=== PATIENT | female | born 1950 | race Caucasian/White ===

== ENCOUNTER → 2016-10-13 | Outpatient (CLI) | payer BC ==
[~2016-10-13] MED LIST: ANTIVERT/2525 M1 PO; BENADRYL25 MG PO; CLARITIN10 M1 PO; HYDROCODONE BIT1 T11 PO; LIPITOR20 MG PO; MEDROL DOSEPAK4 MG PO; NAPROSYN500 MG PO; ZANTAC 7575 MG PO; ZANTAC150 MG PO; ZESTORETIC 25 M1 TA4 PO
[2016-10-13 11:22] LABS: ALBUMIN 3.6 gm/dl (3.1-4.5); ALKALINE PHOSPHATASE 75 U/L (45-117); BILIRUBIN, TOTAL 0.9 mg/dl (0.2-1.0); BUN 20 mg/dl (7-24); CARBON DIOXIDE 30 mmol/L (21-32); CHLORIDE 105 mmol/L (98-107); CHOLESTEROL 179 mg/dL (<200); CPK 145 U/L (26-192); EST GLOM FILT AFRICAN AMERICAN > 60 ml/min; GLUCOSE 85 mg/dL (65-99); HDL CHOLESTEROL 71 mg/dl (40-60); LDL CHOLESTEROL 81 mg/dL (9-159); POTASSIUM 3.8 mmol/L (3.5-5.1); SGOT/AST 18 IU/L (3-35); SGPT/ALT 29 U/L (12-78); SODIUM 145 mmol/L (136-145); TRIGLYCERIDES 135 mg/dl (<150); VLDL CHOLESTEROL 27 mg/dL (6-40)
== END | disposition home or self-care (01) ==
LOC: LAB 10:41
PROVIDERS: Family Medicine
DX: I10 Essential (primary) hypertension (principal); E78.00 Pure hypercholesterolemia, unspecified; E66.9 Obesity, unspecified; E55.9 Vitamin D deficiency, unspecified; R53.83 Other fatigue

== ENCOUNTER 2016-11-04 11:58 | Inpatient (IN) | payer BC ==
[~2016-11-04] VITALS: Ht 165.1 cm; Wt 107.3 kg
[2016-11-04] VITALS (9 sets, daily range): BP systolic 130–158; BP diastolic 58–92
[2016-11-04] MEDS ORDERED: LISINOPRIL AND1 TA2 PO (12:04)
[2016-11-04 12:31] LABS: BASO % 0.6 % (0.0-1.0); EOS # 0.4 10*3/uL (0.0-0.4); EOS % 6.1 % (1.0-4.0); HEMATOCRIT 40.1 % (37.0-47.0); HEMOGLOBIN 13.1 g/dl (12.0-16.0); LYMPH # 2.8 10*3/uL (1.3-4.4); MEAN CELL VOLUME 86.8 fl (81.0-99.0); MEAN CORPUSCULAR HGB 28.4 pg (27.0-31.0); MEAN CORPUSCULAR HGB CONC 32.7 g/dl (33.0-37.0); MEAN PLATELET VOLUME 9.9 fl (9.6-12.3); MONO # 0.5 10*3/uL (0.1-1.0); MONO % 6.8 % (3.0-9.0); NEUT # 3.4 10*3/uL (2.3-7.9); NEUT % 47.4 % (47.0-73.0); PLATELET COUNT AUTOMATED 253 10*3/uL (130-400); RED BLOOD COUNT 4.62 10*6/uL (4.10-5.10); RED CELL DISTRI WIDTH 13.3 % (0-14.5); WHITE BLOOD COUNT 7.2 10*3/uL (4.8-10.8)
[2016-11-04 12:40] LABS: INTERNATIONAL NORM RATIO 0.9 (2.0-3.5); PROTHROMBIN TIME 9.9 SECONDS (9.0-12.4)
[2016-11-04 12:47] LABS: ALBUMIN 3.6 gm/dl (3.1-4.5); ALKALINE PHOSPHATASE 73 U/L (45-117); BILIRUBIN, TOTAL 0.6 mg/dl (0.2-1.0); BUN 28 mg/dl (7-24); CARBON DIOXIDE 27 mmol/L (21-32); CHLORIDE 105 mmol/L (98-107); EST GLOM FILT AFRICAN AMERICAN > 60 ml/min; GLUCOSE 113 mg/dL (65-99); MAGNESIUM 1.7 mg/dL (1.5-2.1); POTASSIUM 3.8 mmol/L (3.5-5.1); SGOT/AST 17 IU/L (3-35); SGPT/ALT 27 U/L (12-78); SODIUM 141 mmol/L (136-145); TOTAL PROTEIN 7.1 gm/dL (6.4-8.2)
[2016-11-05] VITALS: BP 141/64
[2016-11-05 06:56] LABS: BASO % 0.5 % (0.0-1.0); EOS # 0.5 10*3/uL (0.0-0.4); HEMATOCRIT 36.6 % (37.0-47.0); LYMPH # 3.5 10*3/uL (1.3-4.4); LYMPH % 46.7 % (27.0-41.0); MEAN CELL VOLUME 87.1 fl (81.0-99.0); MEAN CORPUSCULAR HGB 28.6 pg (27.0-31.0); MEAN CORPUSCULAR HGB CONC 32.8 g/dl (33.0-37.0); MEAN PLATELET VOLUME 10.1 fl (9.6-12.3); MONO # 0.6 10*3/uL (0.1-1.0); MONO % 7.8 % (3.0-9.0); NEUT # 2.8 10*3/uL (2.3-7.9); NEUT % 37.7 % (47.0-73.0); PLATELET COUNT AUTOMATED 244 10*3/uL (130-400); RED CELL DISTRI WIDTH 13.3 % (0-14.5); WHITE BLOOD COUNT 7.4 10*3/uL (4.8-10.8)
[2016-11-05 07:17] LABS: INTERNATIONAL NORM RATIO 0.9 (2.0-3.5)
[2016-11-05 07:20] LABS: ALBUMIN 3.1 gm/dl (3.1-4.5); BUN 19 mg/dl (7-24); CARBON DIOXIDE 27 mmol/L (21-32); CHLORIDE 109 mmol/L (98-107); CHOLESTEROL 188 mg/dL (<200); EST GLOM FILT AFRICAN AMERICAN > 60 ml/min; GLUCOSE 91 mg/dL (65-99); MAGNESIUM 1.8 mg/dL (1.5-2.1); PHOSPHOROUS 2.9 mg/dL (2.5-4.9); POTASSIUM 3.8 mmol/L (3.5-5.1); SGOT/AST 11 IU/L (3-35); SGPT/ALT 23 U/L (12-78); SODIUM 144 mmol/L (136-145); TRIGLYCERIDES 121 mg/dl (<150); VLDL CHOLESTEROL 24 mg/dL (6-40)
[2016-11-05 07:29] LABS: ALKALINE PHOSPHATASE 62 U/L (45-117); BILIRUBIN, TOTAL 0.6 mg/dl (0.2-1.0); FREE T4 1.01 ng/dl (0.76-1.46); HDL CHOLESTEROL 67 mg/dl (40-60); LDL CHOLESTEROL 97 mg/dL (9-159); THYROID STIM HORMONE (HS) 0.774 uIU/ml (0.358-4.75); TOTAL PROTEIN 6.2 gm/dL (6.4-8.2)
[2016-11-05 07:52] LABS: FOLIC ACID 8.63 ng/mL (>5.38)
[2016-11-05 08:00] VITALS: BP 154/70
[2016-11-05 08:11] LABS: VITAMIN D, 25-HYDROXY 20.1 ng/mL (30-100)
== END 2016-11-05 09:49 | disposition home or self-care (01) | DRG 149 ==
LOC: ED 11:58 → 4E 13:11 → EDHOLD 13:11 → 4E 13:40
PROVIDERS: Internal Medicine; Nurse Practitioner Family
DX: R42 Dizziness and giddiness (principal); I10 Essential (primary) hypertension; R26.9 Unspecified abnormalities of gait and mobility; R26.2 Difficulty in walking, not elsewhere classified; J30.2 Other seasonal allergic rhinitis; R03.0 Elevated blood-pressure reading, without diagnosis of hypertension; K21.9 Gastro-esophageal reflux disease without esophagitis; E78.5 Hyperlipidemia, unspecified; E66.09 Other obesity due to excess calories; Z90.49 Acquired absence of other specified parts of digestive tract; Z82.5 Family history of asthma and other chronic lower respiratory diseases; Z91.041 Radiographic dye allergy status; Z79.899 Other long term (current) drug therapy; Z68.38 Body mass index [BMI] 38.0-38.9, adult

== ENCOUNTER → 2017-01-31 | Outpatient (CLI) | payer OTHER ==
[~2017-01-31] MED LIST changes: +LISINOPRIL AND1 TA2 PO
[2017-01-31 13:59] LABS: ALBUMIN 3.5 gm/dl (3.1-4.5); ALKALINE PHOSPHATASE 78 U/L (45-117); BUN 22 mg/dl (7-24); CHLORIDE 102 mmol/L (98-107); CHOLESTEROL 187 mg/dL (<200); CPK 104 U/L (26-192); CREATININE 0.84 mg/dL (0.55-1.02); HDL CHOLESTEROL 71 mg/dl (40-60); LDL CHOLESTEROL 90 mg/dL (9-159); POTASSIUM 4.3 mmol/L (3.5-5.1); SGOT/AST 17 IU/L (3-35); SGPT/ALT 26 U/L (12-78); SODIUM 141 mmol/L (136-145); TOTAL PROTEIN 7.3 gm/dL (6.4-8.2); TRIGLYCERIDES 132 mg/dl (<150); VLDL CHOLESTEROL 26 mg/dL (6-40)
== END | disposition home or self-care (01) ==
LOC: LAB 13:10
PROVIDERS: Family Medicine
DX: I10 Essential (primary) hypertension (principal); E78.00 Pure hypercholesterolemia, unspecified; E55.9 Vitamin D deficiency, unspecified

== ENCOUNTER → 2017-06-07 | Outpatient (CLI) | payer OTHER ==
[2017-06-07 08:30] LABS: HEMOGLOBIN 12.5 g/dl (12.0-16.0); MEAN CELL VOLUME 86.6 fl (81.0-99.0); MEAN CORPUSCULAR HGB 28.5 pg (27.0-31.0); MEAN CORPUSCULAR HGB CONC 32.9 g/dl (33.0-37.0); MEAN PLATELET VOLUME 10.2 fl (9.6-12.3); RED BLOOD COUNT 4.39 10*6/uL (4.10-5.10); WHITE BLOOD COUNT 7.9 10*3/uL (4.8-10.8)
[2017-06-07 08:42] LABS: ALBUMIN 3.4 gm/dl (3.1-4.5); ALKALINE PHOSPHATASE 73 U/L (45-117); BUN 21 mg/dl (7-24); CHLORIDE 103 mmol/L (98-107); CHOLESTEROL 254 mg/dL (<200); CREATININE 0.79 mg/dL (0.55-1.02); HDL CHOLESTEROL 71 mg/dl (40-60); LDL CHOLESTEROL 156 mg/dL (9-159); POTASSIUM 3.3 mmol/L (3.5-5.1); SGOT/AST 16 IU/L (3-35); SGPT/ALT 22 U/L (12-78); SODIUM 142 mmol/L (136-145); TOTAL PROTEIN 7.1 gm/dL (6.4-8.2); TRIGLYCERIDES 133 mg/dl (<150); VLDL CHOLESTEROL 27 mg/dL (6-40)
== END | disposition home or self-care (01) ==
LOC: LAB 07:18
PROVIDERS: Family Medicine
DX: E78.00 Pure hypercholesterolemia, unspecified (principal); E55.9 Vitamin D deficiency, unspecified; Z79.899 Other long term (current) drug therapy

== ENCOUNTER → 2017-10-18 | Outpatient (CLI) | payer OTHER ==
[2017-10-18 10:48] LABS: HEMATOCRIT 41.5 % (37.0-47.0); HEMOGLOBIN 13.4 g/dl (12.0-16.0); MEAN CELL VOLUME 88.1 fl (81.0-99.0); MEAN CORPUSCULAR HGB 28.5 pg (27.0-31.0); MEAN CORPUSCULAR HGB CONC 32.3 g/dl (33.0-37.0); MEAN PLATELET VOLUME 10.2 fl (9.6-12.3); RED BLOOD COUNT 4.71 10*6/uL (4.10-5.10); RED CELL DISTRI WIDTH 13.2 % (0-14.5); WHITE BLOOD COUNT 6.9 10*3/uL (4.8-10.8)
[2017-10-18 11:23] LABS: ALBUMIN 3.7 gm/dl (3.1-4.5); ALKALINE PHOSPHATASE 72 U/L (45-117); BUN 19 mg/dl (7-24); CHLORIDE 106 mmol/L (98-107); CHOLESTEROL 232 mg/dL (<200); CREATININE 0.89 mg/dL (0.55-1.02); HDL CHOLESTEROL 66 mg/dl (40-60); LDL CHOLESTEROL 145 mg/dL (9-159); SGOT/AST 16 IU/L (3-35); SGPT/ALT 26 U/L (12-78); SODIUM 142 mmol/L (136-145); TOTAL PROTEIN 7.2 gm/dL (6.4-8.2); TRIGLYCERIDES 105 mg/dl (<150); VLDL CHOLESTEROL 21 mg/dL (6-40)
== END | disposition home or self-care (01) ==
LOC: LAB 10:20
PROVIDERS: Family Medicine
DX: E78.00 Pure hypercholesterolemia, unspecified (principal); E55.9 Vitamin D deficiency, unspecified; I10 Essential (primary) hypertension; E87.6 Hypokalemia; Z79.899 Other long term (current) drug therapy

== ENCOUNTER → 2018-01-30 | Outpatient (CLI) | payer OTHER ==
[~2018-01-30] MED LIST changes: +ATORVASTATIN CA20 M1 PO; +CETIRIZINE HCL10 MG PO; +LISINOPRIL-HCT1 EACH PO; +MIACALCIN200 UNIT/1 IJ; +ZANTAC 150150 MG PO; -ZANTAC150 MG PO
[2018-01-30 14:02] LABS: ALBUMIN 3.5 gm/dl (3.1-4.5); BUN 13 mg/dl (7-24); CHLORIDE 108 mmol/L (98-107); CHOLESTEROL 171 mg/dL (<200); CREATININE 0.77 mg/dL (0.55-1.02); HEMATOCRIT 38.7 % (37.0-47.0); HEMOGLOBIN 12.5 g/dl (12.0-16.0); MEAN CELL VOLUME 88.4 fl (81.0-99.0); MEAN CORPUSCULAR HGB 28.5 pg (27.0-31.0); MEAN CORPUSCULAR HGB CONC 32.3 g/dl (33.0-37.0); MEAN PLATELET VOLUME 10.7 fl (9.6-12.3); POTASSIUM 3.6 mmol/L (3.5-5.1); RED BLOOD COUNT 4.38 10*6/uL (4.10-5.10); RED CELL DISTRI WIDTH 13.2 % (0-14.5); SGOT/AST 21 IU/L (3-35); SGPT/ALT 33 U/L (12-78); SODIUM 144 mmol/L (136-145); TRIGLYCERIDES 118 mg/dl (<150); VLDL CHOLESTEROL 24 mg/dL (6-40)
[2018-01-30 14:03] LABS: ALKALINE PHOSPHATASE 62 U/L (45-117); HDL CHOLESTEROL 68 mg/dl (40-60); LDL CHOLESTEROL 79 mg/dL (9-159)
== END | disposition home or self-care (01) ==
LOC: LAB 13:14
PROVIDERS: Family Medicine
DX: E55.9 Vitamin D deficiency, unspecified (principal); E78.00 Pure hypercholesterolemia, unspecified; D64.9 Anemia, unspecified; R53.83 Other fatigue

== ENCOUNTER 2018-03-13 16:21 | Inpatient (IN) | payer OTHER ==
[~2018-03-13] VITALS: Ht 165.1 cm; Wt 105.8 kg
--- NOTE | ~2018-03-13 | EKG ---
[place], [place] ELECTROCARDIOGRAM REPORT NAME: KATHRYN THOMAS UNIT #: [id number] ROOM: 506 DOCTOR: CHELLE DRAFT REPORT BIRTHDATE: [birth year] [facility] Test Date: 2018-03-13 Test Time: 18:25:35 Pat Name: KATHRYN THOMAS Department: Room: 506 Gender: F [employer]: ENA : [id number] Requested By: NANETTE STEIN Order Number: [id number] Reading MD: Avinash Lowery MD Measurements Intervals [place] Rate: 103 P: 66 [place]: 183 QRS: 5 QRSD: 86 T: -16 QT: 343 QTc: 449 Interpretive Statements Sinus tachycardia Low voltage, precordial leads Nonspecific T abnormalities, inferior leads Electronically Signed On 03-13-2018 20:23:38 PST by Avinash Lowery MD CM:EKGRPT:ELECTROCARDIOGRAM REPORT 24 22 NANETTE CORBETT DRAFT REPORT NANETTE STEIN MD
--- NOTE | ~2018-03-13 | PR ---
[place], [place] PROGRESS NOTE NAME: KATHRYN THOMAS [facility] #: [id number] UNIT #: [id number] ROOM: 506 DOCTOR: PRESTON ADAMSON MD BIRTHDATE: [birth year] DOS: SUBJECTIVE: The patient is sitting up in bed, eating her breakfast. She did walk to the bathroom as per nursing staff. Her pain is better controlled. OBJECTIVE: VITAL SIGNS: Pressure is 120/58, pulse of 84, respirations 20, temperature 98.4. LUNGS: Clear. HEART: Regular. ABDOMEN: Obese, soft and nontender. BACK: Mostly tenderness in the lumbosacral area. MRI is showing L1 compression fracture with minimal loss of height with retropulsed fragments. ASSESSMENT AND PLAN: Compression fracture of L1 after a fall. I did speak to Dr. Atkinson's office and they will see the patient on Sunday morning. The advice was to start the patient on Miacalcin spray. The patient also will be started on some pain medications. Discussed with the patient as well as the daughter and follow up with her PCP. PRESTON ADAMSON MD CM:PNEDGAR [id number] PRESTON ADAMSON MD 03/16/18 0117 interface
--- NOTE | ~2018-03-13 | WRIGHTHP ---
[place], [place] PATIENT HISTORY AND PHYSICAL EXAM [id number] UNIT #: [id number] ROOM: 506 DOCTOR: PRESTON ADAMSON MD BIRTHDATE: [birth year] DOS: 03/13/2018 HISTORY OF PRESENT ILLNESS: The patient is 67 years old. The patient was climbing steps into her neighbor's house. She attempted to open the door and step inside, but lost hold of a door as well as a footing and fell backwards two steps, hit her head as well as her back. She complains of severe back pain. She has always had back pain and this has exacerbated her pain. She came into the Emergency Room, where she was evaluated and she was found to have a fracture on a CT. She denies having any chest pains, palpitations, does not have any fever or chills, does not have any abdominal pain, nausea, emesis. PAST MEDICAL HISTORY: 1. Significant for chronic low back pain with history of a fracture as a child. 2. Benign hypertension. 3. Gastroesophageal reflux disease. MEDICATIONS: That she is on are lisinopril, hydrochlorothiazide, ranitidine, and Lipitor. SOCIAL HISTORY: Nonsmoker, does not use any alcohol. She lives at home. A daughter lives with her. PHYSICAL EXAMINATION: GENERAL: She is awake and alert and oriented. VITAL SIGNS: Graphic trend shows a pressure 132/61, pulse of 70, respirations 16, temperature 98.1. LUNGS: Clear. HEART: Regular. ABDOMEN: Obese, soft. EXTREMITIES: Without any edema. Tenderness in the lumbar area L3-L4. ASSESSMENT AND PLAN: 1. A 67-year-old who presents after a fall with compression fracture of L1, whether this is acute or not need to be evaluated with a CT of the lumbar spine. Valium will be given because the patient gets anxious, after the MRI is done if it is really indicate an acute fracture the patient may benefit from vertebroplasty. Unfortunately, we are unable to do vertebroplasty here, so the patient may need to be sent to another facility, the tertiary care center for further workup and treatment. 2. Benign hypertension, controlled. 3. Elevated white cell count, possibly stress effect. [place], [place] PATIENT HISTORY AND PHYSICAL EXAM NAME: KATHRYN THOMAS UNIT #: [id number] ROOM: [facility] DOCTOR: PRESTON ADAMSON MD BIRTHDATE: [birth year] PRESTON ADAMSON MD CM:HISPHYS:PATIENT HISTORY AND PHYSICAL EXAMINATION 7 PRESTON ADAMSON MD 04/01/18 0940 interface
--- NOTE | ~2018-03-13 | DS ---
[place], [place] DISCHARGE SUMMARY NAME: KATHRYN THOMAS [facility] #: [id number] UNIT #: [id number] ROOM: 506 DOCTOR: PRESTON ADAMSON MD BIRTHDATE: [birth year] DOS: 03/15/2018 DIAGNOSES: 1. Acute back pain following a fall. 2. L1 compression fracture with minimal loss of height. 3. Chronic back pain. 4. Benign hypertension. 5. Mixed hyperlipidemia. 6. Gastroesophageal reflux disease. 7. History of osteoporosis for which she used to get Prolia injections. HOSPITAL COURSE: The patient is 67 years old, not known to me, comes in with complaints of back pain following a fall. Please refer to H and P for details. After evaluation in the ER, she had a CT scan in the ER, which showed a compression fracture. She was admitted. Pain control was achieved with IV pain medications. An MRI was performed, which also showed an acute compression fracture of L1 with retropulsed fragments and mild loss of vertebral body height. She also has spinal stenosis with multiple lumbar vertebrae between T12 and L1, L1 and L2, L2 and L3, and L3 and L4. This morning, this patient's condition was discussed with Dr. Atkinson, Orthopedics in [place] and will see the patient as an outpatient on Sunday. Suggestion was to start the patient on Miacalcin nasal spray. DISCHARGE MEDICATIONS: Will be her home meds, ranitidine 150 b.i.d., lisinopril/hydrochlorothiazide 20/25 one tablet daily, atorvastatin 20 daily, cetirizine 10 daily. The new prescription was Miacalcin nasal spray each nostril daily, alternate nostrils, and [place] 7.5 twice a day for 7 days. PRESTON ADAMSON MD CM:DISCHARG 5 PRESTON ADAMSON MD 03/15/1857 interface
[~2018-03-13 16:21] MED LIST changes: -ATORVASTATIN CA20 M1 PO; -CETIRIZINE HCL10 MG PO; -LISINOPRIL-HCT1 EACH PO; -MIACALCIN200 UNIT/1 IJ
[2018-03-13 16:23] VITALS: BP 152/66
[2018-03-13] MEDS ORDERED: ATORVASTATIN CA20 M1 PO (16:25)
[2018-03-13] MEDS ORDERED: CETIRIZINE HCL10 MG PO (16:25)
[2018-03-13] MEDS ORDERED: LISINOPRIL-HCT1 EACH PO (16:25)
[2018-03-13 18:20] VITALS: BP 145/56
[2018-03-13 18:29] LABS: BASO # 0.1 10*3/uL (0.0-0.1); BASO % 0.4 % (0.0-1.0); EOS # 0.4 10*3/uL (0.0-0.4); EOS % 2.8 % (1.0-4.0); HEMOGLOBIN 13.5 g/dl (12.0-16.0); LYMPH # 2.3 10*3/uL (1.3-4.4); LYMPH % 18.2 % (27.0-41.0); MEAN CELL VOLUME 88.4 fl (81.0-99.0); MEAN CORPUSCULAR HGB 29.1 pg (27.0-31.0); MEAN CORPUSCULAR HGB CONC 32.9 g/dl (33.0-37.0); MEAN PLATELET VOLUME 10.2 fl (9.6-12.3); MONO # 0.8 10*3/uL (0.1-1.0); MONO % 6.3 % (3.0-9.0); NEUT # 9.1 10*3/uL (2.3-7.9); NEUT % 71.7 % (47.0-73.0); PLATELET COUNT AUTOMATED 297 10*3/uL (130-400); RED BLOOD COUNT 4.64 10*6/uL (4.10-5.10); RED CELL DISTRI WIDTH 13.1 % (0-14.5); WHITE BLOOD COUNT 12.7 10*3/uL (4.8-10.8)
[2018-03-13 18:40] LABS: ACT PARTIAL THROMBO TIME 23.5 SECONDS (20.8-31.5); INTERNATIONAL NORM RATIO 0.9 (2.0-3.5)
[2018-03-13 18:44] LABS: ALBUMIN 3.7 gm/dl (3.1-4.5); ALKALINE PHOSPHATASE 84 U/L (45-117); BUN 24 mg/dl (7-24); CHLORIDE 107 mmol/L (98-107); CREATININE 1.05 mg/dL (0.55-1.02); SGOT/AST 25 IU/L (3-35); SGPT/ALT 31 U/L (12-78); SODIUM 140 mmol/L (136-145); TOTAL PROTEIN 7.2 gm/dL (6.4-8.2)
[2018-03-13 19:34] VITALS: BP 127/55
[2018-03-13 19:55] VITALS: BP 134/46
[2018-03-14] VITALS: BP 141/60
[2018-03-14 08:24] VITALS: BP 132/61
[2018-03-14 12:00] VITALS: BP 123/59
[2018-03-14 13:43] LABS: BILIRUBIN NEGATIVE (NEGATIVE); BLOOD NEGATIVE (NEGATIVE); CLARITY CLEAR (CLEAR); COLOR YELLOW (YELLOW); GLUCOSE NEGATIVE (NEGATIVE); KETONE NEGATIVE (NEGATIVE); LEUKO ESTERASE TRACE (NEGATIVE); NITRITE NEGATIVE (NEGATIVE); PH 5.5 (5.0-9.0); SPECIFIC GRAVITY >= 1.030 (1.005-1.030)
[2018-03-14 14:02] LABS: BACTERIA 1+; EPITHELIAL CELLS 15-20; RBC 0-2 rbc/hpf (0-2)
[2018-03-14 16:19] VITALS: BP 132/65
[2018-03-14 20:00] VITALS: BP 133/56
[2018-03-15] VITALS: BP 120/58
[2018-03-15 08:00] VITALS: BP 96/60
[2018-03-15] MEDS ORDERED: MIACALCIN200 UNIT/1 IJ (08:34)
== END 2018-03-15 12:00 | disposition home or self-care (01) | DRG 552 ==
LOC: ED 16:21 → 5E 19:22 → EDHOLD 19:22 → 5E 19:24
PROVIDERS: Emergency Medicine
DX: S32.010A Wedge compression fracture of first lumbar vertebra, initial encounter for closed fracture (principal); I10 Essential (primary) hypertension; J30.2 Other seasonal allergic rhinitis; G89.29 Other chronic pain; K21.9 Gastro-esophageal reflux disease without esophagitis; E04.1 Nontoxic single thyroid nodule; M48.05 Spinal stenosis, thoracolumbar region; E78.2 Mixed hyperlipidemia; M81.0 Age-related osteoporosis without current pathological fracture; W10.8XXA Fall (on) (from) other stairs and steps, initial encounter; E66.9 Obesity, unspecified; M54.9 Dorsalgia, unspecified; Z91.041 Radiographic dye allergy status; Z79.899 Other long term (current) drug therapy; Z90.49 Acquired absence of other specified parts of digestive tract; Z82.49 Family history of ischemic heart disease and other diseases of the circulatory system; Z83.3 Family history of diabetes mellitus; Z83.6 Family history of other diseases of the respiratory system; Y93.89 Activity, other specified; Y92.89 Other specified places as the place of occurrence of the external cause; Y99.8 Other external cause status

== ENCOUNTER → 2020-05-14 | Outpatient (CLI) | payer OTHER ==
[~2020-05-14] MED LIST changes: +ATORVASTATIN CA20 M1 PO; +CETIRIZINE HCL10 MG PO; +LISINOPRIL-HCT1 EACH PO; +MIACALCIN200 UNIT/1 IJ
[2020-05-14 12:48] LABS: BASO # 0.1 10*3/uL (0.0-0.1); BASO % 0.6 % (0.0-1.0); EOS # 0.6 10*3/uL (0.0-0.4); EOS % 6.9 % (1.0-4.0); HEMATOCRIT 39.8 % (37.0-47.0); LYMPH # 2.6 10*3/uL (1.3-4.4); LYMPH % 33.1 % (27.0-41.0); MEAN CORPUSCULAR HGB 27.5 pg (27.0-31.0); MEAN CORPUSCULAR HGB CONC 30.9 g/dl (33.0-37.0); MEAN PLATELET VOLUME 9.9 fl (9.6-12.3); MONO # 0.7 10*3/uL (0.1-1.0); MONO % 8.3 % (3.0-9.0); NEUT # 4.1 10*3/uL (2.3-7.9); NEUT % 50.8 % (47.0-73.0); PLATELET COUNT AUTOMATED 302 10*3/uL (130-400); RED BLOOD COUNT 4.47 10*6/uL (4.10-5.10); RED CELL DISTRI WIDTH 12.8 % (0-14.5)
[2020-05-14 13:16] LABS: ALBUMIN 3.6 gm/dl (3.1-4.5); ALKALINE PHOSPHATASE 80 U/L (45-117); BUN 26 mg/dl (7-24); CHLORIDE 107 mmol/L (98-107); CHOLESTEROL 184 mg/dL (<200); CREATININE 0.86 mg/dL (0.55-1.02); HDL CHOLESTEROL 77 mg/dl (40-60); LDL CHOLESTEROL 86 mg/dL (9-159); POTASSIUM 3.8 mmol/L (3.5-5.1); SGOT/AST 19 IU/L (3-35); SGPT/ALT 32 U/L (12-78); SODIUM 142 mmol/L (136-145); TOTAL PROTEIN 6.9 gm/dL (6.4-8.2); TRIGLYCERIDES 104 mg/dl (<150); VLDL CHOLESTEROL 21 mg/dL (6-40)
== END | disposition home or self-care (01) ==
LOC: LAB 12:26
PROVIDERS: ATTEND Internal Medicine
DX: I10 Essential (primary) hypertension (principal); K21.9 Gastro-esophageal reflux disease without esophagitis; M85.80 Other specified disorders of bone density and structure, unspecified site; E04.1 Nontoxic single thyroid nodule; Z91.89 Other specified personal risk factors, not elsewhere classified; Z11.59 Encounter for screening for other viral diseases

== ENCOUNTER 2024-05-04 00:44 | Emergency (ER) | payer MEDICARE ==
[~2024-05-04] VITALS: Ht 160 cm; Wt 99.8 kg
[2024-05-04] MEDS ORDERED: ALENDRONATE SOD70 M1 PO (00:56)
[2024-05-04] MEDS ORDERED: ANASTROZOLE1 M1 PO (00:56)
[2024-05-04 01:00] LABS: BASO % 0.3 % (0.0-1.0); EOS # 0.6 10*3/uL (0.0-0.4); EOS % 6.4 % (1.0-4.0); HEMATOCRIT 38.5 % (37.0-47.0); MEAN CORPUSCULAR HGB 28.5 pg (27.0-31.0); MEAN CORPUSCULAR HGB CONC 31.7 g/dl (33.0-37.0); MEAN PLATELET VOLUME 9.7 fl (9.6-12.3); MONO # 0.8 10*3/uL (0.1-1.0); NEUT # 2.8 10*3/uL (2.3-7.9); NEUT % 32.4 % (47.0-73.0); PLATELET COUNT AUTOMATED 317 10*3/uL (130-400); RED BLOOD COUNT 4.28 10*6/uL (4.10-5.10); RED CELL DISTRI WIDTH 12.9 % (0-14.5); WHITE BLOOD COUNT 8.7 10*3/uL (4.8-10.8)
[2024-05-04] MEDS ORDERED: Ondansetron Hydrochloride 4 MG TAB SL ONE (01:20)
[2024-05-04 01:26] LABS: POTASSIUM 3.7 mmol/L (3.4-5.1)
[2024-05-04] MEDS ORDERED: AVPAK AZITHROM250 MG PO (04:50)
== END 2024-05-04 04:55 | disposition home or self-care (01) ==
LOC: ED 00:44
PROVIDERS: Internal Medicine
DX: R13.10 Dysphagia, unspecified (principal); Z20.822 Contact with and (suspected) exposure to COVID-19; K21.9 Gastro-esophageal reflux disease without esophagitis; I10 Essential (primary) hypertension; F32.A Depression, unspecified; E78.00 Pure hypercholesterolemia, unspecified; Z91.013 Allergy to seafood; Z91.041 Radiographic dye allergy status; Z90.89 Acquired absence of other organs; Z90.49 Acquired absence of other specified parts of digestive tract; Z98.890 Other specified postprocedural states